=== PATIENT | female | born 1980 | race Caucasian/White ===

== ENCOUNTER 2018-01-12 04:16 | Emergency (ER) | payer OTHER ==
[~2018-01-12] VITALS: Ht 167.6 cm; Wt 56.8 kg
[2018-01-12 04:18] VITALS: BP 110/62; TEMP 98.2
[2018-01-12 04:50] VITALS: PULSE 62
== END 2018-01-12 04:50 | disposition home or self-care (01) ==
LOC: COL.ER 04:16
DX: S01.01XA Laceration without foreign body of scalp, initial encounter (principal); Y04.0XXA Assault by unarmed brawl or fight, initial encounter